=== PATIENT | female | born 1980 | race Caucasian/White ===

== ENCOUNTER → 2017-09-14 | Outpatient (CLI) | payer OTHER | LOC: COL.RAD 13:30 | DX: Z31.41 Encounter for fertility testing (principal); Z53.8 Procedure and treatment not carried out for other reasons ==

== ENCOUNTER → 2017-09-23 | Outpatient (CLI) | payer OTHER | LOC: COL.RAD 08:00 | DX: N97.1 Female infertility of tubal origin (principal) | CPT/HCPCS: Q9967 ==